=== PATIENT | male | born 2000 | race Caucasian/White ===

== ENCOUNTER 2024-11-15 22:03 | Emergency (ER) | payer SELFPAY ==
[2024-11-15 22:07] VITALS: BP 145/82; PULSE 84; RESP 16; O2SAT 99
--- NOTE | 2024-11-16 02:18 | ED_ITS ---
HPI - Skin/Abscess/Foreign Bdy General Chief complaint: Skin/Abscess/Foreign Body Stated complaint: poison rachel infection Time Seen by Provider: 11/16/24 01:29 History of Present Illness HPI narrative: 24-year-old male presents emergency department for poison rachel to his left hand. Patient states about a week ago he was on a fluid trip and a day later developed a poison rachel rash to the dorsum of his left hand and fingers. He he is reporting several blisters to his left hand and fevers and states he started to pop today. He works at [employer] and states he works with his hands frequently. He states that the blisters have been draining clear fluid but denies any purulence, fevers. He has been using calamine lotion with minimal improvement. Patient notes a history of poison rachel rashes. Related Data Allergies Allergy/AdvReac Type Severity Reaction Status Date / Time No Known Allergies Allergy Verified 11/16/24 02:26 Review of Systems Review of Systems: All systems reviewed & are unremarkable except as noted in HPI and below Exam Narrative: GENERAL: Well-appearing, well-nourished, and in no acute distress. HEAD: Normocephalic, atraumatic. EYES: EOMI. ENT: Nares clear, no rhinorrhea or epistaxis. Mucous membranes moist. NECK: Supple. CHEST: Clear to auscultation. No respiratory distress. HEART: Regular rate and rhythm. No murmur heard. Normal peripheral pulses. EXTREMITIES: Normal range of motion. No edema. SKIN: Erythematous papular vesicular rash to the dorsum of the left hand with several scattered large fluid-filled vesicles to the dorsum of hand fingers, 1 vesicle to the dorsum of the 1st digit recently opened. No surrounding erythema, warmth, purulence, crepitus NEURO: No focal deficits. Alert and oriented x3 Course Vital Signs Vital signs: Vital Signs Pulse Rate 84 11/15/24 22:07 Respiratory Rate 16 11/15/24 22:07 Blood Pressure 145/82 H 11/15/24 22:07 Pulse Oximetry 99 11/15/24 22:07 Pulse Rate 84 11/15/24 22:07 Respiratory Rate 16 11/15/24 22:07 Blood Pressure 145/82 H 11/15/24 22:07 Pulse Oximetry 99 11/15/24 22:07 MDM - Skin/Abscess/Foreign Bdy MDM Narrative Medical decision making narrative: 24-year-old male presents emergency department with concerns for poison rachel rash to the dorsum of his left hand. Patient states he developed a rash after he went on a float trip one week ago. Triage vitals are stable. Patient is afebrile and nontoxic appearing. Exam is consistent with papulovesicular rash with multiple large intact vesicles to the dorsum of the left hand. No evidence of secondary bacterial infection. Presentation is consistent with poison rachel dermatitis. Patient was given IM Kenalog in the ED and was sent home with topical triamcinolone. Advised continuation of calamine lotion and follow-up wi PCP. Will give him a couple days off work given he works frequently with his hands. Discussed strict ED return precautions. He is agreeable with the plan verbalized understanding. Discharged in stable condition. Discharge Plan Discharge Clinical Impression: Poison rachel dermatitis Patient Disposition: Home Condition: Stable Instructions: Antibiotic Form, Poison Rachel (ED) Additional Instructions: Please use the triamcinolone cream as directed. You can continue to use calamine lotion as needed for itching. Keep the area clean and dry. Follow-up closely with her PCP. Return to the emergency department if you develop fever, surrounding redness, pus like drainage or other concerning symptoms. Patient Language: Welsh Prescriptions: New triamcinolone acetonide 0.1 % cream 1 applic topical BID Qty: 30 0RF Follow-up/Referrals: PHYSICIAN,BUSINESS CASE ANALYST [Primary Care Provider] - Stand Alone Forms: Work/School Release IP
[2024-11-16] MEDS: TRIAMCINOLONE ACET INJ 40 MG/ML VIAL 60 MG IM (02:35)
== END 2024-11-16 02:40 | disposition home or self-care (01) ==
PROVIDERS: Emergency Provider Physician Assistant
DX: L23.7 Allergic contact dermatitis due to plants, except food (principal)
CPT/HCPCS: 96372; 99283; J3301